=== PATIENT | female | born 1980 | race Caucasian/White ===

== ENCOUNTER 2016-09-14 04:28 | Emergency (ER) | payer SELFPAY ==
[2016-09-14 05:07] LABS: APPEARANCE HAZY (CLEAR); COLOR ORANGE (YELLOW); RED CELLS - URINE 0-5 /hpf (0-5); SPECIFIC GRAVITY 1.025 (1.005-1.020); WHITE CELLS - URINE >50 /hpf (0-5)
[2016-09-14 05:08] LABS: BACTERIA MODERATE /hpf (NONE SEEN); EPITHELIAL CELLS 0-5 /hpf (0-5)
[2016-09-14 05:43] LABS: HCG SERUM NEGATIVE (NEGATIVE)
== END 2016-09-14 07:25 | disposition home or self-care (01) ==
LOC: D.ER 04:28
PROVIDERS: Family Medicine
DX: N23 Unspecified renal colic (principal); N20.1 Calculus of ureter